=== PATIENT | male | born 1985 | race Caucasian/White ===

== ENCOUNTER → 2017-11-08 | Emergency (ER) | payer OTHER | END | disposition home or self-care (01) | LOC: ER 14:59 | DX: S01.82XA Laceration with foreign body of other part of head, initial encounter (principal); W26.8XXA Contact with other sharp object(s), not elsewhere classified, initial encounter; Y93.89 Activity, other specified; Y92.89 Other specified places as the place of occurrence of the external cause; Y99.8 Other external cause status ==

== ENCOUNTER → 2019-07-09 | Emergency (ER) | payer OTHER ==
[~2019-07-09] VITALS: Ht 170.2 cm; Wt 77.1 kg
== END | disposition home or self-care (01) ==
LOC: ER 22:09
DX: B34.9 Viral infection, unspecified (principal); R50.9 Fever, unspecified

== ENCOUNTER 2022-05-23 18:52 | Emergency (ER) | payer OTHER ==
[~2022-05-23] VITALS: Ht 170.2 cm; Wt 68.0 kg
== END 2022-05-23 23:11 | disposition home or self-care (01) ==
LOC: ER 18:52
DX: T88.7XXA Unspecified adverse effect of drug or medicament, initial encounter (principal); T40.425A Adverse effect of tramadol, initial encounter; Y92.9 Unspecified place or not applicable

== ENCOUNTER 2023-10-20 11:34 | Emergency (ER) | payer OTHER ==
[~2023-10-20] VITALS: Ht 170.2 cm; Wt 72.6 kg
[2023-10-20] MEDS ORDERED: KETOROLAC TROMETHAMINE 60 MG VIAL IM ONE (13:45)
[2023-10-20 14:01] LABS: HEMOGLOBIN 13.8 g/dL (13-16.00); MEAN CELL VOLUME 89.3 fL (80.0-100.00); MEAN CORPUSCULAR HGB CONC 33.6 g/dl (32.0-36.0); PLATELET COUNT 420 K/uL (150-450); RED BLOOD COUNT 4.58 M/uL (4.00-6.00); RED CELL DISTRIBUTION WIDTH 13.6 % (11.5-14.5)
[2023-10-20 16:22] LABS: CALCIUM 9.3 mg/dL (8.5-10.1); CREATININE SERUM 1.03 mg/dL (0.70-1.30); GFR 81.71; POTASSIUM 4.04 mEq/L (3.5-5.1)
[2023-10-20] MEDS ORDERED: CEFTRIAXONE SODIUM 1,000 MG VIAL IV ONE (19:15)
== END 2023-10-20 20:41 | disposition home or self-care (01) ==
LOC: ER 11:35
PROVIDERS: General Practice
DX: L02.93 Carbuncle, unspecified (principal)